=== PATIENT | male | born 1990 | race Caucasian/White ===

== ENCOUNTER 2021-02-01 11:25 | Emergency (ER) | payer BC, SELFPAY ==
--- NOTE | 2021-02-01 11:37 | CT_ITS ---
WS: [id number] CT ABDOMEN AND PELVIS WITH CONTRAST HISTORY: abd pain TECHNIQUE: Imaging performed of the abdomen and pelvis with IV contrast. Single phase imaging of the abdomen. Coronal and sagittal reformats are submitted. All CT scans at [facility] use at vi st one of these dose optimization techniques: automated exposure control; mA and/or kV adjustment per patient size (includes targeted exams where dose is matched to clinical indication); or iterative re construction. IV CONTRAST: Omnipaque 300; 95 mL IV. Oral contrast: No DLP: 1922.64 mGy.cm COMPARISON: None available. Lower thorax: Lung bases are clear. Heart is normal size. No hiatal hernia. Liver/biliary system: Normal size with no intrahepatic dilatation. Gallbladder: Mildly contracted gallbladder. No adjacent inflammation. Pancreas: Normal size pancreas and pancreatic duct. No adjacent inflammation. Spleen: Normal size spleen. No mass or infarct. Adrenal glands: Normal. Right kidney: Normal. Left kidney: Normal. Aorta: Normal. Lymphadenopathy: There are small mesenteric and RIGHT lower quadrant lymph nodes. No adenopathy. Free fluid: None. GI tract: The appendix is well identified and top normal size. There is an appendicolith in the mid a ppendix. No adjacent edema. The appendix extends retrocecal and terminates at the inferior RIGHT lobe of the liver. There are a few small mesenteric lymph nodes in the RIGHT lower quadrant close to the appendix. No GI tract obstruction. Abdominal wall: Fat containing umbilical hernia. Pelvis: No free fluid or adenopathy within the pelvis. Bones: Thoracolumbar scoliosis. CT/CT abdomen pelvis w con* [id number] IMPRESSION: 1. Contracted gallbladder. No adjacent inflammation. This may be due to a nonf asting state. Line no bile duct dilatation. 2. Normal appendix. There is a phlebolith within the appendix but no adjacent inflammation. 3. Small mesenteric lymph nodes and RIGHT lower quadrant lymph nodes. These ar e not enlarged.
[2021-02-01 11:53] VITALS: BP 126/81; PULSE 68; RESP 19; TEMP 37.1; O2SAT 98; BMI 28.0
[2021-02-01 11:58] VITALS: BP 120/81; PULSE 74; RESP 17; O2SAT 98
[2021-02-01 12:11] LABS: Add Urine Microscopic? NO; Charge for UA Resulting for Rev
[2021-02-01 12:15] LABS: Bilirubin Urine Neg (Negative); Blood Urine Neg (Negative); Glucose Urine UA Norm (Normal); Ketones Urine Negative (Negative); Leukocyte Esterase Urine Negative (Negative); Nitrate Urine Negative (Negative); Protein Urine Neg (Negative); Urine Appearance Clear (CLEAR); Urine Color Yellow (Yellow); Urobilinogen Urine Norm (Negative); pH Urine 7 (5-7)
[2021-02-01 12:26] LABS: Basophils # 0.1 10^3/uL (0.0-0.1); Basophils % 0.6 %; Eosinophils # 0.4 10^3/uL (0.0-0.8); Eosinophils % 4.2 %; Hematocrit 45.4 % (42.0-52.0); Lymphocytes # 2.7 10^3/uL (0.8-4.8); Lymphocytes % 29.4 %; Mean Corpuscular HGB Conc 35.2 g/dL (30.0-36.0); Mean Corpuscular Volume 90.8 fl (80-94); Mean Platelet Volume 9.8 fL (7.4-10.4); Monocytes % 10.5 %; Neutrophils # 4.97 10^3/uL (1.8-7.7); Neutrophils % 54.5 %; Nucleated Red Blood Cells % 0 %; Platelet Count 203 10^3/cmm (130-400); Red Cell Distribution Width 11.9 % (12.1-15.1); White Blood Count 9.1 10^3/uL (4.0-10.0)
[2021-02-01] MEDS: iohexol 300 mg/mL 100 mL Btl IV (12:26)
--- NOTE | 2021-02-01 12:48 | ED_ITS ---
HPI - Abdominal Pain General: Chief Complaint: Abdominal Pain Stated Complaint: RUQ ABD PAIN Time Seen by Provider: 02/01/21 11:37 History of Present Illness: HPI narrative: 31-year-old male presents emergency room complaining of right upper quadrant abdominal pain with nausea that he has had for about 2 weeks now. Denies any fever sweats or chills is worse he states when he stands up straight or stretches out he does not really notice any association with eating not had any fever sweats chills no nausea vomiting or diarrhea no dysuria urgency or frequency no previous abdominal surgeries. MD elicited complaint: abdominal pain Onset (ago): week(s) (2) Pain Consistency: intermittent Location: None Severity: moderate Quality: cramping Radiation: none Exacerbating factors: nothing Relieving factors: nothing Associated Symptoms: Reports anorexia, bloating and GI cramping; Denies belching, change in bowel habits, change in stool character, chills, coffee ground emesis, constipation, diarrhea, dyspepsia, dysuria, excessive flatus, fever(s), heartburn, hematochezia, hematuria, hematemesis, fecal incontinence, loose stools, melena, nausea, poor appetite, syncope and vomiting Review of Systems Const: Denies: fever(s) or chills ENMT: Denies: throat pain, ear or mastoid pain, nasal discharge or nasal congestion Card: Denies: syncope Resp: Denies: dyspnea, productive cough or non-productive cough GI: Reports: bloating and GI cramping; Denies: nausea, vomiting, hematemesis, coffee ground emesis, heartburn, diarrhea, constipation, belching, excessive flatus, fecal incontinence, change in bowel habits, change in stool character, hematochezia or melena : Denies: dysuria or hematuria Skin/Breast: Denies: rash or pruritus Physical Exam Const: COMMON NORMALS: no acute distress GENERAL APPEARANCE: cooperative and comfortable ORIENTATION/CONSCIOUSNESS: Yes awake, Yes oriented to person, Yes oriented to place and Yes oriented to time HENMT: COMMON NORMALS: normocephalic, atraumatic and hearing grossly normal bilaterally HEAD & SCALP: normocephalic and atraumatic Neck/C-Spine: COMMON NORMALS: no JVD Resp: COMMON NORMALS: normal respiratory effort, No retractions, No use of accessory muscles and clear to auscultation bilaterally AUSCULTATION: clear to auscultation bilaterally Cardio: COMMON NORMALS: no JVD, regular rate, regular rhythm and No murmurs present (Cardio) RATE: regular rate RHYTHM: regular rhythm GI: COMMON NORMALS: No hepatosplenomegaly present AUSCULTATION: Yes normoactive bowel sounds PALPATION: Yes Tenderness to palpation present (GI) Details: RUQ, No Guarding due to palpation present (GI) and Yes No hepatosplenomegaly present Extremity: COMMON NORMALS: normal to inspection, capillary refill normal, no clubbing, cyanosis or edema, no calf tenderness and no pedal edema Neuro: SENSORIUM/ORIENTATION: Yes oriented to person, Yes oriented to place and Yes oriented to time Skin: COMMON NORMALS: no rashes or lesions noted GENERAL SKIN EXAM: no rashes or lesions noted Course Vital Signs: Vital signs: Vital Signs Temperature 98.7 F 02/01/21 11:53 Pulse Rate 77 02/01/21 14:08 Respiratory Rate 18 02/01/21 14:08 Blood Pressure 120/81 02/01/21 14:08 Pulse Oximetry 98 02/01/21 14:08 MDM - Abdominal Pain MDM Narrative: Medical decision making narrative: Labs and imaging reviewed with the patient will discharge patient home start on Protonix use Zofran as needed for any worsening change symptoms return follow-up with primary care or surgery for EGD. Lab Data: Labs: Lab Results 02/01/21 02/01/21 02/01/21 12:09 12:12 12:12 WBC 9.1 10^3/uL 10^3/ uL (4.0-10.0) RBC 5.00 10^6/uL 10^6 /uL (4.1-5.3) Hgb 16.0 g/dL g/dL (11.7-16.6) Hct 45.4 % % (42.0-52.0) MCV 90.8 fl fl (80-94) MCH 32.0 pg pg (28.0-34.0) MCHC 35.2 g/dL g/dL (30.0-36.0) RDW 11.9 % L % (12.1-15.1) Plt Count 203 10^3/cmm 10^3 /cmm (130-400) MPV 9.8 fL fL (7.4-10.4) Neut % (Auto) 54.5 % % Lymph % (Auto) 29.4 % % [place]arro % (Auto) 10.5 % % Eos % (Auto) 4.2 % % Baso % (Auto) 0.6 % % Neut # (Auto) 4.97 10^3/uL 10^3 /uL (1.8-7.7) Lymph # (Auto) 2.7 10^3/uL 10^3/ uL (0.8-4.8) [place]arro # (Auto) 1.0 10^3/uL H 10^ 3/uL (0.2-0.9) Eos # (Auto) 0.4 10^3/uL 10^3/ uL (0.0-0.8) Baso # (Auto) 0.1 10^3/uL 10^3/ uL (0.0-0.1) Nucleated RBC % (a uto) 0 % % Nucleated RBCs # 0.0 /100WBC /100W BC Sodium Potassium Chloride Carbon Dioxide Anion Gap BUN Creatinine GFR Calculation Glucose Calculated Osmolal ity Lactic Acid 0.8 mmol/L mmol/L (0.5-2.2) Calcium Total Bilirubin AST ALT Alkaline Phosphata se Total Protein Albumin Globulin Urine Color Yellow (Yellow) Urine Appearance Clear (CLEAR) Urine pH 7 (5-7) Ur Specific Gravit y 1.010 (1.005-1.030) Urine Protein Neg (Negative) Urine Glucose (UA) Norm (Normal) Urine Ketones Negative (Negative) Urine Blood Neg (Negative) Urine Nitrate Negative (Negative) Urine Bilirubin Neg (Negative) Urine Urobilinogen Norm mg/dL mg/dL (Negative) Ur Leukocyte Bernice ase Negative (Negative) 02/01/21 12:12 WBC RBC Hgb Hct MCV MCH MCHC RDW Plt Count MPV Neut % (Auto) Lymph % (Auto) [place] % (Auto) Eos % (Auto) Baso % (Auto) Neut # (Auto) Lymph # (Auto) [place] # (Auto) Eos # (Auto) Baso # (Auto) Nucleated RBC % (a uto) Nucleated RBCs # Sodium 139 mmol/L mmol/L (136-145) Potassium 4.1 mmol/L mmol/L (3.5-5.1) Chloride 102 mmol/L mmol/L (98-107) Carbon Dioxide 28 mmol/L mmol/L (22-29) Anion Gap 13.1 (5-19) BUN 9 mg/dL mg/dL (6-20) Creatinine 0.8 mg/dL mg/dL (0.7-1.2) GFR Calculation 114.3 mL/min mL/m in (90-130) Glucose 89 mg/dL mg/dL (65-115) Calculated Osmolal ity 286 mOsm/kg mOsm/ kg (285-295) Lactic Acid Calcium 9.6 mg/dL mg/dL (8.5-10.5) Total Bilirubin 0.4 mg/dL mg/dL (0.15-1.2) AST 38 U/L U/L (0-40) ALT 94 U/L H U/L (0-41) Alkaline Phosphata se 99 IU/L IU/L (40-130) Total Protein 7.3 g/dL g/dL (6.6-8.7) Albumin 4.5 g/dL g/dL (3.5-5.2) Globulin 2.8 g/dL g/dL (1.3-4.6) Urine Color Urine Appearance Urine pH Ur Specific Gravit y Urine Protein Urine Glucose (UA) Urine Ketones Urine Blood Urine Nitrate Urine Bilirubin Urine Urobilinogen Ur Leukocyte Bernice ase Discharge Plan Discharge Patient Disposition: Home Clinical Impression: Abdominal pain, GERD (gastroesophageal reflux disease) Condition: Stable Prescriptions: New Protonix 40 mg tablet,delayed release (DR/EC) 40 mg PO DAILY 28 Days Qty: 30 RF: 0 Zofran 4 mg tablet 4 mg PO Q6H PRN (Reason: nausea and vomiting) Qty: 20 RF: 0 No Action Zyrtec 10 mg Tablet 10 mg PO DAILY RF: 0 ibuprofen 200 mg Tablet 400 mg PO Q4H PRN (Reason: Pain) RF: 0 Discharge Orders: Discharge ED (Routine); Ordered 02/01/21 Ordered By: Viktor Nath Discharge Diet: Usual diet Discharge Activity: Resume usual activity Patient Instructions: Abdominal Pain (ED), Opioid Safety Activity Restrictions/Additional Instructions: If symptoms persist or worsen return to be reevaluated. Recommend he follow-up with primary care doctor the next 1 to 2 weeks to reevaluate and consider possible endoscopy Coding Level of Care Code ED Sponge Hooker for Chg Fwd Exam Comprehensive
[2021-02-01 12:53] LABS: Lactic Sepsis W/Reflex 0.8 mmol/L (0.5-2.2)
[2021-02-01 12:59] LABS: Alanine Aminotransferase 94 U/L (0-41); Albumin Level 4.5 g/dL (3.5-5.2); Alkaline Phosphatase 99 IU/L (40-130); Anion Gap 13.1 (5-19); Aspartate Amino Transferase 38 U/L (0-40); Blood Urea Nitrogen 9 mg/dL (6-20); Calcium 9.6 mg/dL (8.5-10.5); Carbon Dioxide 28 mmol/L (22-29); Chloride 102 mmol/L (98-107); Globulin 2.8 g/dL (1.3-4.6); Glomerular Filtration Rate 114.3 mL/min (90-130); Glucose 89 mg/dL (65-115); Osmolality Calculated 286 mOsm/kg (285-295); Potassium 4.1 mmol/L (3.5-5.1); Sodium 139 mmol/L (136-145); Total Bilirubin 0.4 mg/dL (0.15-1.2); Total Protein 7.3 g/dL (6.6-8.7)
[2021-02-01 14:08] VITALS: BP 120/81; PULSE 77; RESP 18; O2SAT 98
== END 2021-02-01 14:00 | disposition home or self-care (01) ==
PROVIDERS: Emergency Provider Family Medicine
DX: R10.9 Unspecified abdominal pain (principal); K21.9 Gastro-esophageal reflux disease without esophagitis
CPT/HCPCS: 74177; 80053; 81003; 83605; 85025; 99282; Q9967

== ENCOUNTER 2022-12-31 07:27 | Emergency (ER) | payer BC, SELFPAY ==
[2022-12-31 07:48] VITALS: BP 138/88; PULSE 63; TEMP 36.6; O2SAT 97; BMI 27.3
--- NOTE | 2022-12-31 08:01 | W.ED.ABDPA2 ---
HPI - Abdominal Pain General: Chief Complaint: Abdominal Pain Stated Complaint: upper abd pain Time Seen by Provider: 12/31/22 07:30 Source: patient Mode of arrival: ambulatory Limitations: no limitations History of Present Illness: Patient is a 32-year-old male who presents to the emergency department complaining of epigastric abdominal pain onset 2300 last night. Patient reports pain to the center of his abdomen with radiation into the back, stating that he has had this once before couple years ago that subsided on its own after a day or to. He was seen in ED for it and had normal work up and CT scan at the time. The pain has been constantly dull since onset, but he states that it will intermittently spike to a sharp like pain at times. He took a hydroxyzine and some Tums for his symptoms, stating minimal relief. He reports associated nausea, and while he says he has felt like vomiting he has never vomited and denies any other symptoms. He has not had any diarrhea and has not been running a fever. He still has his gallbladder and denies personal history of alcohol use or high cholesterol. He has never been diagnosed with pancreatitis and states that he is overall healthy. He states that drinking fluids seem to aggravate his pain as well as movement. MD elicited complaint: abdominal pain Pertinent past history: none Onset (ago): hour(s) Pain Consistency: constant Location: Epigastric Severity: moderate Quality: stabbing and dull Radiation: back Migration to: no migration Exacerbating factors: movement Relieving factors: nothing Associated Symptoms: Reports nausea; Denies chills, constipation, diarrhea, dysuria, fever(s), hematochezia, hematemesis, melena, syncope and vomiting Review of Systems Const: Denies: fever(s) or chills Eyes: Denies: change in vision or blurry vision Card: Denies: chest pain, palpitations, irregular heart rhythm, lightheadedness, syncope or dyspnea on exertion Resp: Denies: dyspnea, productive cough or pain on inspiration GI: Reports: abdominal pain and nausea; Denies: vomiting, hematemesis, diarrhea, constipation, hematochezia or melena : Denies: difficulty urinating or dysuria Musc: Denies: neck pain, back pain or joint pain Skin/Breast: Denies: rash Neuro: Denies: headache(s) or dizziness Physical Exam Const: COMMON NORMALS: no acute distress, average body habitus, patient oriented x3, no limitations, healthy appearing, alert and well nourished GENERAL APPEARANCE: cooperative and comfortable ORIENTATION/CONSCIOUSNESS: Yes awake, Yes oriented to person, Yes oriented to place and Yes oriented to time HENMT: COMMON NORMALS: normocephalic and atraumatic HEAD & SCALP: normocephalic and atraumatic Neck/C-Spine: COMMON NORMALS: no JVD Chest: COMMONS NORMALS: normal inspection of the chest Resp: COMMON NORMALS: normal respiratory effort and clear to auscultation bilaterally AUSCULTATION: clear to auscultation bilaterally Cardio: COMMON NORMALS: no JVD, regular rate and regular rhythm RATE: regular rate RHYTHM: regular rhythm GI: COMMON NORMALS: Normal to inspection, nondistended, normoactive bowel sounds present, Soft to palpation, No hepatosplenomegaly present and no masses INSPECTION: Yes normal to inspection, No abdominal wall ecchymosis and No abdominal distension AUSCULTATION: Yes normoactive bowel sounds PALPATION: Yes Soft to palpation, Yes Tenderness to palpation present (GI) (Minimal tenderness to palpation throughout abdomen; non surgical) Details: other (max tenderness seems in between epigastrium and periumbilical ), No Guarding due to palpation present (GI), No Rigid due to palpation and Yes No hepatosplenomegaly present : COMMON NORMALS: Yes no CVA tenderness BLADDER/KIDNEY EXAM: Yes no CVA tenderness Back/Pelvis: COMMON NORMALS: no CVA tenderness and thoracic and lumbar spine normal to inspection Extremity: COMMON NORMALS: normal to inspection GENERAL: Yes normal exam except as noted Neuro: COMMON NORMALS: patient oriented x3, moves all extremities, no focal motor deficits and no sensory deficits noted SENSORIUM/ORIENTATION: Yes alert, Yes oriented to person, Yes oriented to place and Yes oriented to time Skin: COMMON NORMALS: no rashes or lesions noted GENERAL SKIN EXAM: no rashes or lesions noted Course Vital Signs: Vital signs: Vital Signs Temperature 98 F 12/31/22 07:48 Pulse Rate 63 12/31/22 07:48 Blood Pressure 138/88 12/31/22 07:48 Pulse Oximetry 97 12/31/22 07:48 Oxygen Delivery Me thod Room Air 12/31/22 07:48 MDM - Abdominal Pain Medical Decision Making Patient appears in no acute distress. His vital signs are stable. Blood work is completely unremarkable. His UA is clear. On exam patient has a nonsurgical abdomen. He will be discharged home with instructions for primary care follow-up. Return ED precautions given. Lab Data 12/31/22 08:30 12/31/22 09:17 Labs/Radiology: Laboratory Results WBC 8.67 10^3/uL (3.29-11.43) 12/31/22 08:30 RBC 5.03 10^6/uL (3.85-5.65) 12/31/22 08:30 Hgb 15.80 g/dL (11.27-16.99) 12/31/22 08:30 Hct 44.3 % (37-53) 12/31/22 08:30 MCV 88.1 fl (82-101) 12/31/22 08:30 MCH 31.4 pg (27-33) 12/31/22 08:30 MCHC 35.7 g/dL (30-55) 12/31/22 08:30 RDW 11.7 % (12.1-15.1) L 12/31/22 08:30 Plt Count 206 10^3/cmm (157-399) 12/31/22 08:30 MPV 10.0 fL (7.4-10.4) 12/31/22 08:30 Neut % (Auto) 64.1 % 12/31/22 08:30 Lymph % (Auto) 24.1 % 12/31/22 08:30 [place]ulloch % (Auto) 8.5 % 12/31/22 08:30 Eos % (Auto) 2.5 % 12/31/22 08:30 Baso % (Auto) 0.5 % 12/31/22 08:30 Neut # (Auto) 5.55 10^3/uL (1.8-7.7) 12/31/22 08:30 Lymph # (Auto) 2.1 10^3/uL (0.8-4.8) 12/31/22 08:30 [place]ulloch # (Auto) 0.7 10^3/uL (0.2-0.9) 12/31/22 08:30 Eos # (Auto) 0.2 10^3/uL (0.0-0.8) 12/31/22 08:30 Baso # (Auto) 0.0 10^3/uL (0.0-0.1) 12/31/22 08:30 Nucleated RBC % (auto) 0 % 12/31/22 08:30 Nucleated RBCs # 0.0 /100WBC 12/31/22 08:30 Sodium 138 mmol/L (136-145) 12/31/22 09:17 Potassium 4.5 mmol/L (3.5-5.1) 12/31/22 09:17 Chloride 103 mmol/L (98-107) 12/31/22 09:17 Carbon Dioxide 30 mmol/L (22-29) H 12/31/22 09:17 Anion Gap 9.5 (5-19) 12/31/22 09:17 BUN 10 mg/dL (6-20) 12/31/22 09:17 Creatinine 0.9 mg/dL (0.7-1.2) 12/31/22 09:17 GFR Calculation 99.1 mL/min (90-130) 12/31/22 09:17 Glucose 107 mg/dL (65-115) 12/31/22 09:17 Calculated Osmolality 286 mOsm/kg (285-295) 12/31/22 09:17 Calcium 9.7 mg/dL (8.5-10.5) 12/31/22 09:17 Total Bilirubin 0.5 mg/dL (0.15-1.2) 12/31/22 09:17 AST 15 U/L (0-40) 12/31/22 09:17 ALT 28 U/L (0-41) 12/31/22 09:17 Alkaline Phosphatase 71 U/L (40-130) 12/31/22 09:17 Total Protein 7.0 g/dL (6.6-8.7) 12/31/22 09:17 Albumin 4.6 g/dL (3.5-5.2) 12/31/22 09:17 Globulin 2.4 g/dL (1.3-4.6) 12/31/22 09:17 Lipase 21 U/L (13-60) 12/31/22 09:17 Urine Color Yellow (Yellow) 12/31/22 09:58 Urine Appearance Clear (CLEAR) 12/31/22 09:58 Urine pH 7 (5-7) 12/31/22 09:58 Ur Specific [place] 1.010 (1.005-1.030) 12/31/22 09:58 Urine Protein Neg (Negative) 12/31/22 09:58 Urine Glucose (UA) Norm (Normal) 12/31/22 09:58 Urine Ketones Negative (Negative) 12/31/22 09:58 Urine Blood Neg (Negative) 12/31/22 09:58 Urine Nitrate Negative (Negative) 12/31/22 09:58 Urine Bilirubin Neg (Negative) 12/31/22 09:58 Urine Urobilinogen Norm mg/dL (Negative) 12/31/22 09:58 Ur Leukocyte Esterase Negative (Negative) 12/31/22 09:58 Discharge Plan Discharge Patient Disposition: Home Clinical Impression: Abdominal pain of unknown cause Condition: Stable Prescriptions: No Action cetirizine [Zyrtec] 10 mg Tablet 10 mg PO DAILY ibuprofen 200 mg Tablet 400 mg PO Q4H PRN (Reason: Pain) hydroxyzine HCl 25 mg Tablet 25 mg PO TID PRN (Reason: Anxiety) Discharge Orders: Discharge ED (Routine); Ordered 12/31/22 Ordered By: Rafia Storey Patient Instructions: Abdominal Pain (ED) Activity Restrictions/Additional Instructions: As we discussed your blood work here is completely unremarkable. Your urine analysis is normal. At this point I have a low suspicion for any type of life-threatening, emergent, or surgical etiology for your abdominal pain. As we discussed I would like you to follow-up with primary care for further evaluation. You need to return to the emergency department for worsening abdominal pain, repetitive episodes of vomiting or diarrhea, fevers greater than 100.4, generally feeling worse or unwell, or any other concerns you may have. I hope you begin to feel better soon. Coding Level of Care Code ED Plisse Machine Operator Helper for Marlen Mclain
[2022-12-31] MEDS: sodium chloride 0.9% 1,000 ML 999 ML IV (08:27)
[2022-12-31] MEDS: aluminum-mag hydrox-simethicon 30 ML, sucralfate oral liq 1 GM PO (08:33)
[2022-12-31 08:36] LABS: Basophils % 0.5 %; Eosinophils # 0.2 10^3/uL (0.0-0.8); Eosinophils % 2.5 %; Hematocrit 44.3 % (37-53); Lymphocytes # 2.1 10^3/uL (0.8-4.8); Lymphocytes % 24.1 %; Mean Corpuscular HGB Conc 35.7 g/dL (30-55); Mean Corpuscular Hemoglobin 31.4 pg (27-33); Mean Corpuscular Volume 88.1 fl (82-101); Monocytes # 0.7 10^3/uL (0.2-0.9); Monocytes % 8.5 %; Neutrophils # 5.55 10^3/uL (1.8-7.7); Neutrophils % 64.1 %; Nucleated Red Blood Cells % 0 %; Platelet Count 206 10^3/cmm (157-399); Red Blood Count 5.03 10^6/uL (3.85-5.65); Red Cell Distribution Width 11.7 % (12.1-15.1); White Blood Count 8.67 10^3/uL (3.29-11.43)
[2022-12-31 09:41] LABS: Alanine Aminotransferase 28 U/L (0-41); Albumin Level 4.6 g/dL (3.5-5.2); Alkaline Phosphatase 71 U/L (40-130); Anion Gap 9.5 (5-19); Aspartate Amino Transferase 15 U/L (0-40); Blood Urea Nitrogen 10 mg/dL (6-20); Calcium 9.7 mg/dL (8.5-10.5); Carbon Dioxide 30 mmol/L (22-29); Chloride 103 mmol/L (98-107); Globulin 2.4 g/dL (1.3-4.6); Glomerular Filtration Rate 99.1 mL/min (90-130); Glucose 107 mg/dL (65-115); Lipase 21 U/L (13-60); Osmolality Calculated 286 mOsm/kg (285-295); Potassium 4.5 mmol/L (3.5-5.1); Sodium 138 mmol/L (136-145); Total Bilirubin 0.5 mg/dL (0.15-1.2)
[2022-12-31 10:11] LABS: Add Urine Microscopic? NO; Charge for UA Resulting for Rev
[2022-12-31 10:15] LABS: Bilirubin Urine Neg (Negative); Blood Urine Neg (Negative); Glucose Urine UA Norm (Normal); Ketones Urine Negative (Negative); Leukocyte Esterase Urine Negative (Negative); Nitrate Urine Negative (Negative); Protein Urine Neg (Negative); Urine Appearance Clear (CLEAR); Urine Color Yellow (Yellow); Urobilinogen Urine Norm (Negative); pH Urine 7 (5-7)
[2022-12-31] MEDS: ketorolac 30 mg/mL INJ 15 MG IVP (10:28)
--- NOTE | 2022-12-31 10:56 | DCPLANNER ---
Addendum entered by Jeannette Purdy 01/03/23 10:45: Patient did not attend appointment Original Note: assistant manager pt was asked to speak with patient about getting established with a primary care physician. assistant manager pt spoke with patient, he stated that he would like to be established at the [facility]. assistant manager pt called the [facility] clinic, gave clinic patients information. A follow up appointment was scheduled for Friday, January 01, 2023 at 2:00 with Jarvis. assistant manager pt gave patient the appointment information.
== END 2022-12-31 11:01 | disposition home or self-care (01) ==
PROVIDERS: Emergency Provider Physician Assistant
DX: R10.13 Epigastric pain (principal)
CPT/HCPCS: 80053; 81003; 83690; 85025; 96374; 99284; J1885; J7030